=== PATIENT | female | born 1990 | race Caucasian/White ===

== ENCOUNTER 2018-12-31 12:14 | Day surgery (SDC) | payer OTHER ==
[~2018-12-31] VITALS: Ht 160 cm; Wt 80.1 kg
[~2018-12-31 12:14] MED LIST: CALCIUM; OMEPRAZOLE; VITAMINS
[2018-12-31 13:36] VITALS: BP 99/54; PULSE 80; RESP 19; Ht 160 cm; Wt 80.1 kg
[2018-12-31] MEDS ORDERED: PROPOFOL 60 ML ONE (15:02)
[2018-12-31 15:12] VITALS: BP 105/63; PULSE 82; RESP 16
[2018-12-31 15:30] VITALS: BP 108/75; PULSE 76; RESP 22
== END 2018-12-31 15:36 | disposition home or self-care (01) ==
LOC: GIL 12:14
PROVIDERS: ATTEND Internal Medicine Gastroenterology
DX: Z12.11 Encounter for screening for malignant neoplasm of colon (principal); D12.6 Benign neoplasm of colon, unspecified
CPT/HCPCS: 45380; 84703; 88305; 88312; Z7610